=== PATIENT | male | born 1990 | race Caucasian/White ===

== ENCOUNTER 2020-11-17 13:51 | Emergency (ER) | payer OTHER ==
[~2020-11-17] VITALS: Ht 175.3 cm; Wt 54.4 kg
[2020-11-17] MEDS ORDERED: ZOFRAN4 MG PO (15:57)
== END 2020-11-17 16:07 | disposition home or self-care (01) ==
LOC: ED 13:51
DX: R10.9 Unspecified abdominal pain (principal); Z87.891 Personal history of nicotine dependence; Z20.822 Contact with and (suspected) exposure to COVID-19
CPT/HCPCS: 71045; 80053; 81001; 83605; 85025; 87040; 96374; 99284-25; C9803; J2405; J7030; U0003